=== PATIENT | female | born 1980 | race African-American/Black ===

== ENCOUNTER → 2017-04-06 | Outpatient (CLI) | payer BC ==
[~2017-04-06] MED LIST: ASPIR 8181 MG PO; CARVEDILOL3.125 MG PO; LASIX20 MG PO; [UNRECOGNIZED DRUG - CODE] PO
--- NOTE | 2017-04-06 11:55 | Diagnostic Imaging Report ---
Left knee MRI without contrast. History: Knee pain. Medial pain. Decreased range of motion. Meniscus injury. Comparison: None. Technique: Multiplanar multi-sequence MRI of the knee without contrast. Findings: Medial compartment: There is mid substance degeneration of the medial meniscus. No meniscal tear, cartilage abnormality, or MCL tear. Lateral compartment: No meniscal tear or cartilage abnormality. The LCL complex is normal. Intercondylar notch: The ACL and PCL are intact. Patellofemoral compartment: No chondromalacia or patellar dislocation. Extensor mechanism: The quadriceps and patellar tendons are normal. Other findings: There is a joint effusion and synovitis. There is no acute fracture, subluxation or avascular necrosis. IMPRESSION: Mid substance degeneration of the medial meniscus. No meniscal tear, collateral ligament tear or cruciate ligament tear. Signed by: Dr. Jasiel Diggs M.D. on 04/06/2017 11:51 AM
== END ==
LOC: RAD 09:37
PROVIDERS: ATTEND Family Medicine
DX: M25.562 Pain in left knee (principal)

== ENCOUNTER → 2017-04-24 | Outpatient (CLI) | payer BC ==
[2017-04-24 12:28] LABS: ALANINE AMINOTRANSFERASE 16 IU/L (0-55); ALBUMIN 4.3 g/dL (3.5-5.0); ALKALINE PHOSPHATASE 55 IU/L (40-150); ANION GAP 10.1 mmol/L (8-16); BLOOD UREA NITROGEN 6 mg/dL (7-26); BUN/CREATININE RATIO 7 (6-25); CALCIUM 9.7 mg/dL (8.4-10.2); CARBON DIOXIDE 28 mmol/L (22-29); CHLORIDE 100 mmol/L (98-107); CREATININE, SERUM 0.86 mg/dL (0.57-1.11); EST GLOMERULAR FILTRATION RATE > 60 ML/MIN (60-); GLUCOSE 86 mg/dL (74-118); POTASSIUM 4.1 mmol/L (3.5-5.1); SODIUM 134 mmol/L (136-145)
[2017-04-24 12:33] LABS: BASOPHILS % 0.6 % (0.0-1.0); EOSINOPHILS # (AUTO) 0.1 (0.0-0.4); EOSINOPHILS % 1.7 % (0.0-6.0); HEMATOCRIT 37.1 % (34.2-44.1); HEMOGLOBIN 12.1 g/dL (12.0-16.0); LYMPHOCYTES # (AUTO) 1.8 (1.0-3.2); LYMPHOCYTES % 33.5 % (18.0-39.1); MEAN CORPUSCULAR HEMOGLOBIN 26.5 pg (28-32); MEAN CORPUSCULAR HGB CONC 32.6 g/dL (31-35); MEAN CORPUSCULAR VOLUME 81.4 fL (81-99); MONOCYTES # (AUTO) 0.4 (0.2-0.8); MONOCYTES % 7.4 % (4.4-11.3); NEUTROPHILS # (AUTO) 3.1 (2.1-6.9); NEUTROPHILS % 56.6 % (38.7-80.0); PLATELET COUNT 301 x10e3/uL (140-360); RED BLOOD COUNT 4.56 x10e6/uL (3.6-5.1); RED CELL DISTRIBUTION WIDTH 13.6 % (11.7-14.4)
== END ==
LOC: LAB 07:55
PROVIDERS: ATTEND Family Medicine
DX: M25.562 Pain in left knee (principal)
CPT/HCPCS: 36415; 80053; 85025

== ENCOUNTER → 2017-11-09 | Outpatient (CLI) | payer BC ==
[2017-11-09 19:14] LABS: BASOPHILS % 0.6 % (0.0-1.0); EOSINOPHILS # (AUTO) 0.1 (0.0-0.4); EOSINOPHILS % 1.1 % (0.0-6.0); HEMATOCRIT 35.6 % (34.2-44.1); HEMOGLOBIN 11.4 g/dL (12.0-16.0); LYMPHOCYTES # (AUTO) 2.5 (1.0-3.2); MEAN CORPUSCULAR HEMOGLOBIN 26.7 pg (28-32); MEAN CORPUSCULAR VOLUME 83.4 fL (81-99); MONOCYTES # (AUTO) 0.4 (0.2-0.8); MONOCYTES % 6.4 % (4.4-11.3); NEUTROPHILS # (AUTO) 3.4 (2.1-6.9); NEUTROPHILS % 52.4 % (38.7-80.0); PLATELET COUNT 269 x10e3/uL (140-360); RED BLOOD COUNT 4.27 x10e6/uL (3.6-5.1)
[2017-11-09 19:25] LABS: ALANINE AMINOTRANSFERASE 12 IU/L (0-55); ALBUMIN 3.8 g/dL (3.5-5.0); ALKALINE PHOSPHATASE 48 IU/L (40-150); BLOOD UREA NITROGEN 11 mg/dL (7-26); BUN/CREATININE RATIO 14 (6-25); CALCIUM 9.5 mg/dL (8.4-10.2); CARBON DIOXIDE 24 mmol/L (22-29); CHLORIDE 103 mmol/L (98-107); CREATININE, SERUM 0.79 mg/dL (0.57-1.11); EST GLOMERULAR FILTRATION RATE > 60 ML/MIN (60-); GLUCOSE 97 mg/dL (74-118); SODIUM 136 mmol/L (136-145)
== END ==
LOC: LAB 17:59
PROVIDERS: ATTEND Family Medicine
DX: M25.50 Pain in unspecified joint (principal); M79.1 Myalgia
CPT/HCPCS: 36415; 80053; 85025; 86021; 86039; 86140; 86431

== ENCOUNTER 2018-10-20 13:30 | Emergency (ER) | payer BC ==
[~2018-10-20] VITALS: Ht 172.7 cm; Wt 86.2 kg
--- OUTSIDE RECORDS SUMMARY | 2018-10-20 13:32 | XMS REPORT ---
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 Allergies, Adverse Reactions, Alerts This patient has no known allergies or adverse reactions. Medications This patient has no known medications. Results Test Description Test Time Test Comments Text Results Atomic Results Result Comments SCR MAMM BILATERAL TANNA CAD DIGITAL 2018-08-31 08:14:40 - SCR MAMM BILATERAL TANNA CAD DIGITALBILATERAL DIGITAL SCREENING MAMMOGRAM 3D/2D WITH CAD: 08/30/2018CLINICAL: Asymptomatic. Digital breast tomosynthesis was performed in addition to routine CC and MLO views. Current mammographic images were evaluated by either a Datumate M-Vu or a Quack ImageChecker CAD (computer aided detection system). Comparison is made to exams dated 08/05/2017 mammogram, 06/26 mammogram, and 05/29/2015 mammogram - [facility]. There are scattered fibroglandular tissues in both breasts. There are few benign calcifications in the breasts. No suspicious new mass, new focus of architectural distortion, malignant type calcification, or lymph node abnormality detected. Breast architecture is stable compared to prior exams and consistent with change post reduction mammoplasty.IMPRESSION: BENIGNThere is no mammographic evidence of malignancy. Resume annual screening mammography in two years at age 39.Jorge A Kim M.D. rb/:08/31/2018 08:14:40 Corporate Travel Agent: Isabella DAMON, [facility] sent: BIRADS 1-2 Normal Mammogram BI-RADS: 2 Benign MRI KNEE LEFT WO [address] [address] Patient Name: ELLIOT COOPER MR #: [id number] : 1980 Age/Sex: 36/F Req #: [id number] Adm Physician: Ordered by: LAURA SEGURA M.D. Report #: [id number] Location: [facility] Room/Bed: Procedure: [id number] MRI/MRI KNEE LEFT WO Exam Date: 04/06/17 Exam Time: 1100 REPORT STATUS: Signed Left knee MRI without contrast. History: Knee pain. Medial pain. Decreased range of motion. Meniscus injury. Comparison: None. Technique: Multiplanar multi-sequence MRI of the knee without contrast. Findings: Medial compartment: There is mid substance degeneration of the medial meniscus. No meniscal tear, cartilage abnormality, or MCL tear. Lateral compartment: No meniscal tear or cartilage abnormality. The LCL complex is normal. Intercondylar notch: The ACL and PCL are intact. Patellofemoral compartment: No chondromalacia or patellar dislocation. Extensor mechanism: The quadriceps and patellar tendons are normal. Other findings: There is a joint effusion and synovitis. There is no acute fracture, subluxation or avascular necrosis. IMPRESSION: Mid substance degeneration of the medial meniscus. No meniscal tear, collateral ligament tear or cruciate ligament tear. Signed by: Dr. Jasiel Diggs M.D. on 04/06/2017 11:51 AM Dictated By: JASIEL DIGGS MD, MD [id number] Transcribed By: MARYANA on 04/06/17 1151 COPY TO: LAURA SEGURA M.D.
--- NOTE | 2018-10-20 14:44 | Diagnostic Imaging Report ---
EXAMINATION: C SPINE 4-5 VIEW - HOPD, L SPINE 2-3 VEWS - HOPD, T SPINE 2VW - HOPD INDICATION: Neck pain, back pain COMPARISON: None FINDINGS: Cervical spine: No acute fracture. Alignment is normal. No significant degenerative changes. Prevertebral soft tissues are normal in thickness. Thoracic spine: No acute fracture. Alignment is normal. The visualized lungs are clear. The cardiomediastinal silhouette appears unremarkable. Lumbar spine: No acute fracture or dislocation. Alignment is normal. No substantial degenerative change. Nonobstructive bowel gas pattern. No suspicious calcifications. IMPRESSION: No acute osseous injury. Normal alignment of the cervical, thoracic, and lumbar spine. Signed by: Slime Gabriel MD on 10/20/2018 2:40 PM
[2018-10-20 15:33] VITALS: BP 147/91
== END 2018-10-20 15:32 | disposition home or self-care (01) ==
LOC: FSED 13:30
DX: S16.1XXA Strain of muscle, fascia and tendon at neck level, initial encounter (principal); S13.4XXA Sprain of ligaments of cervical spine, initial encounter; S29.012A Strain of muscle and tendon of back wall of thorax, initial encounter; S23.3XXA Sprain of ligaments of thoracic spine, initial encounter
CPT/HCPCS: 72050; 72070; 72100; 99283

== ENCOUNTER 2019-06-30 21:26 | Emergency (ER) | payer BC ==
[~2019-06-30] VITALS: Ht 172.7 cm; Wt 88.5 kg
[~2019-06-30 21:26] MED LIST changes: +CEFDINIR300 MG PO; +CORTISPORIN-TC10 ML EACH EAR
--- OUTSIDE RECORDS SUMMARY | 2019-06-30 21:29 | XMS REPORT | Summary of Care ---
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 Role Phone Ho Reeves PCP Reason for Visit * Reason Comments Results Encounter Details Care Team Description Date Type Department Will Yeung MD [address] [place] [id number] Results 06/26/2019 Telephone [facility], [address], [address] [place] [address] Allergies No Known Allergiesdocumented as of this encounter (statuses as of 06/27/2019) Medications End Date Status Medication Sig Dispensed Refills Start Date Active clindamycin 1 % Apply to 60 mL 2 solutionIndications: Rash affected 0 and other nonspecific area(s) 2 skin eruption (two) times daily. documented as of this encounter (statuses as of 06/27/2019) Active Problems No known active problemsdocumented as of this encounter (statuses as of 06/27/2019) Social History Date Tobacco Use Types Packs/Day Years Used Never Assessed Sex Assigned at Date Recorded Not on file Industry Job Start Date Occupation Not on file Not on file Not on file Travel End Travel History Travel Start No recent travel history available. documented as of this encounter Last Filed Vital Signs Not on filedocumented in this encounter Plan of Treatment Health Maintenance Due Date Last Done Comments DTaP,Tdap,and Td Vaccines 12/05/1990 (1 - Tdap) PAP SMEAR 12/05/2000 INFLUENZA VACCINE (#1) 2018 PNEUMOCOCCAL 0-64 YEARS Aged Out No longer eligible based COMBINED SERIES on patient's age to complete this topic documented as of this encounter Results Not on filedocumented in this encounter Insurance Type Payer Benefit Subscriber ID Effective Phone Address Plan / Dates Group PPO/POS [employer] [place] [employer] OF [id number] 2018-P [phone] [address] [facility] [id number] [place] [address] documented as of this encounter
[2019-06-30] MEDS ORDERED: SODIUM CHLORIDE 0.9% 1000ML 1,000 ML IV STA (21:55)
[2019-06-30] MEDS ORDERED: CEFTRIAXONE SOD 1 GM VIAL IV ONE (22:00)
[2019-06-30] MEDS ORDERED: SODIUM CHLORIDE 0.9% 1000ML 1,000 ML ONE (22:28)
[2019-06-30] MEDS ORDERED: CEFTRIAXONE SOD 1 GM VIAL ONE (22:28)
[2019-06-30] MEDS ORDERED: SODIUM CHLORIDE 0.9% 50ML 50 ML ONE (23:16)
[2019-06-30] MEDS ORDERED: IOPAMIDOL 370 MG/ML 200 ML INFUS..BTL INJ ONE (23:17)
--- NOTE | 2019-06-30 23:20 | Diagnostic Imaging Report ---
History:Right ear pain with bloody discharge for 2 weeks. Comparison studies: None Technique: Axial images were obtained through the facial region. Coronal and sagittal images reconstructed from the axial data. Dose modulation, iterative reconstruction, and/or weight based adjustment of the mA/kV was utilized to reduce the radiation dose to as low as reasonably achievable. Intravenous contrast: 100 cc of Isovue 370. Findings: Soft tissues: Moderate soft tissue swelling in the right periauricular region that extends to the external auditory canal, narrowing the canal. No discrete peripheral rim-enhancing fluid collection. No adjacent osseous erosive changes. Nonspecific thickening of the tympanic membrane. Prominent right preauricular lymph node that approximately measures 1.1 cm in long axis. No discrete fluid within right middle ear or in the mastoid air cells. Bones: No fractures or bony abnormalities. Orbits: Globes: Intact. Extra or intraconal abnormalities: None. Paranasal sinuses: Clear IMPRESSION: 1. Findings possibly represent right otitis externa, with marked nonspecific thickening of the tympanic membrane. 2. Enlarged right preauricular lymph node, is likely reactive. 3. No discrete soft tissue abscess. Signed by: Dr. Margarita John M.D. on 06/30/2019 11:16 PM
== END 2019-06-30 23:51 | disposition home or self-care (01) ==
LOC: FSED 21:26
DX: H60.321 Hemorrhagic otitis externa, right ear (principal); H60.11 Cellulitis of right external ear
CPT/HCPCS: 70487; 80053; 85025; 99284; J0696; J7030; Q9967

== ENCOUNTER → 2019-07-23 | Outpatient (CLI) | payer BC ==
--- NOTE | 2019-07-23 15:25 | Diagnostic Imaging Report ---
Thyroid ultrasound CPT code: 15621 History: Thyroid nodule Comparison: Chest CT of 06/29/2015 Findings: The thyroid echotexture is normal. Vascularity is normal. The right lobe measures 5.3 x 1.4 x 2.1 cm. The left lobe measures 5.2 x 1.3 x 2.0 cm. The isthmus measures 0.3 cm. Nodules (measurements are AP, transverse, craniocaudal): Right Lobe: No cystic mass or discrete solid nodule identified. Left Lobe: No cystic mass or discrete solid nodule identified. cm. Isthmus: No cystic mass or discrete solid nodule identified. Lymph Nodes: No cervical lymph nodes are identified. Parathyroids: Not visualized. IMPRESSION: Normal thyroid ultrasound. ACR glossary of thyroid rads TI-RADS 1: No focal lesion. TI-RADS 2: Not suspicious. TI-RADS 3: Mildly suspicious (recommend FNA is greater than or equal to 2.5 cm; follow-up at 1, 3, and 5 years if greater than or equal to 1.5 cm) TI-RADS 4: Moderately Suspicious (recommend FNA is greater than or equal to 1.5 cm; follow-up at 1, 2, 3, and 5 years) TI-RADS 5: Highly suspicious (recommend FNA is greater than or equal to 10 mm) TI-RADS 6: Biopsy-proven malignancy Signed by: Slime Gabriel MD on 07/23/2019 3:22 PM
== END ==
LOC: US 09:34
PROVIDERS: ATTEND Otolaryngology
DX: E04.1 Nontoxic single thyroid nodule (principal)
CPT/HCPCS: 76536